=== PATIENT | female | born 1995 | race Caucasian/White ===

== ENCOUNTER 2020-12-14 15:07 | Outpatient (CLI) | payer OTHER ==
[~2020-12-14] VITALS: Ht 167.6 cm; Wt 115.7 kg
[~2020-12-14 15:07] MED LIST: PRENATAL VITAM1 EAC8 PO
[2020-12-14 15:56] LABS: HEMOGLOBIN 12.3 gm/dl (12.3-15.3); RED BLOOD COUNT 4.01 M/UL (4.00-5.10); WHITE BLOOD COUNT 17.2 K/UL (4.5-11.0)
[2020-12-15] MEDS ORDERED: DOCUSATE SODIU100 MG PO (09:54)
[2020-12-15] MEDS ORDERED: IBUPROFEN800 MG PO (09:54)
[2020-12-15] MEDS ORDERED: HYDROCODONE-AC1 EAC1 PO (09:54)
== END 2020-12-14 16:09 | disposition home or self-care (01) ==
LOC: GENOP 15:07
PROVIDERS: Obstetrics & Gynecology
DX: Z01.812 Encounter for preprocedural laboratory examination (principal)
CPT/HCPCS: 36415; 81001; 85025

== ENCOUNTER 2020-12-15 07:19 | Inpatient (IN) | payer OTHER ==
[~2020-12-15] VITALS: Ht 167.6 cm; Wt 115.7 kg
[2020-12-15] MEDS ORDERED: HYDROCODONE-AC1 EAC1 PO (09:54)
[2020-12-15] MEDS ORDERED: IBUPROFEN800 MG PO (09:54)
[2020-12-15] MEDS ORDERED: DOCUSATE SODIU100 MG PO (09:54)
[2020-12-16 06:34] LABS: HEMOGLOBIN 10.7 gm/dl (12.3-15.3)
== END 2020-12-16 15:32 | disposition home or self-care (01) | DRG 788 ==
LOC: OB 07:19 → OPSV2 11:15 → EDSTATUS 11:15 → OB 12-16 15:32
PROVIDERS: ADMIT Obstetrics & Gynecology
PROC: 10D00Z1 Extraction of Products of Conception, Low, Open Approach (ICD-10-PCS; principal; 2020-12-15 08:00)
DX: O34.212 Maternal care for vertical scar from previous cesarean delivery (principal); Z3A.36 36 weeks gestation of pregnancy; Z37.0 Single live birth
CPT/HCPCS: 36415; 81001; 82800; 85014; 85018; 85025; 90471; 90715; C9113; J0690; J1170; J1885; J2274; J2405; J2590; J3010; J7120

== ENCOUNTER → 2022-03-04 | Outpatient (CLI) | payer OTHER ==
[~2022-03-04] MED LIST changes: +DOCUSATE SODIU100 MG PO; +HYDROCODONE-AC1 EAC1 PO; +IBUPROFEN800 MG PO
== END ==
LOC: CT 10:35
DX: R31.9 Hematuria, unspecified (principal)
CPT/HCPCS: Q9967

== ENCOUNTER 2022-06-07 10:48 | Emergency (ER) | payer OTHER ==
[2022-06-07 12:35] LABS: HEMOGLOBIN 14.5 gm/dl (12.3-15.3); RED BLOOD COUNT 4.79 M/UL (4.00-5.10); WHITE BLOOD COUNT 10.3 K/UL (4.5-11.0)
[2022-06-07 13:01] LABS: BUN/CREATININE RATIO 11 (0-10)
[2022-06-07] MEDS ORDERED: OMNICEF 300 MG300 MG PO (18:32)
== END 2022-06-07 18:53 | disposition home or self-care (01) ==
LOC: ER1 10:48
PROVIDERS: Emergency Medicine
DX: R10.9 Unspecified abdominal pain (principal); R31.9 Hematuria, unspecified; F17.200 Nicotine dependence, unspecified, uncomplicated
CPT/HCPCS: 80053; 81001; 83690; 84703; 85025; 96360; 99284; Q9967

== ENCOUNTER → 2022-06-17 | Outpatient (CLI) | payer OTHER ==
[~2022-06-17] MED LIST changes: +OMNICEF 300 MG300 MG PO
== END ==
LOC: EXRD 09:23 → KOH-I 06-27 10:45
DX: K85.90 Acute pancreatitis without necrosis or infection, unspecified (principal)
CPT/HCPCS: 76700

== ENCOUNTER → 2022-06-21 | Outpatient (CLI) | payer OTHER | LOC: KOH-I 15:03 | DX: J90 Pleural effusion, not elsewhere classified (principal) | CPT/HCPCS: 71046 ==